=== PATIENT | female | born 1950 | race Two or more races ===

== ENCOUNTER 2022-10-16 17:07 | Emergency (ER) | payer MEDICARE, OTHER ==
[~2022-10-16] VITALS: Ht 170.2 cm; Wt 81.0 kg
[2022-10-16] MEDS ORDERED: PRED20TA2 PO (23:14)
[2022-10-16] MEDS ORDERED: DOXY-332 PO (23:14)
[2022-10-16] MEDS ORDERED: ACET-1158 PO (23:14)
[2022-10-16 23:48] VITALS: BP 138/88
== END 2022-10-16 23:48 | disposition home or self-care (01) ==
LOC: ER 17:07
DX: J20.9 Acute bronchitis, unspecified (principal); I10 Essential (primary) hypertension; E78.5 Hyperlipidemia, unspecified; Z20.822 Contact with and (suspected) exposure to COVID-19
CPT/HCPCS: 36415; 71046; 87426; 87804